=== PATIENT | male | born 1975 | race Caucasian/White ===

== ENCOUNTER 2020-01-17 11:00 | Inpatient (IN) | payer OTHER, SELFPAY ==
[2020-01-17] VITALS (14 sets, daily range): BP systolic 176–234; BP diastolic 82–151; PULSE 98–113; RESP 16–26; TEMP 36–36.7; O2SAT 95–100; BMI 27.4
--- NOTE | ~2020-01-17 | XR_ITS ---
XR chest 2V DATE: 01/18/2020 13:12 INDICATION: Hypertensive crisis. Pancreatitis. TECHNIQUE: PA and lateral views COMPARISON: None FINDINGS: Normal heart size. There are calcified right hilar nodes consistent with old granulomatous disease. No hilar or mediastinal enlargement. No pulmonary infiltrate or consolidation, pleural effusion or pulmonary vascular congestion or pneumo thorax. IMPRESSION: No active cardiopulmonary disease Reviewed, dictated and finalized at location A.
--- NOTE | ~2020-01-17 | CT_ITS ---
EXAMINATION: CT abdomen pelvis w con EXAM DATE: 01/17/2020 11:41 INDICATION: Abdominal pain. TECHNIQUE: Spiral CT of the abdomen and pelvis was performed following intravenous injection of 100 m L Omnipaque 350. Axial, coronal and sagittal images were reviewed. The dose-length product (DLP) fo r this examination was 471.12 mGy-cm. The exposure was tailored according to patient size (auto mA e xposure control), and iterative reconstruction (ASIR) was used as additional dose reduction technique . There is no prior study for comparison. FINDINGS: There is mild to moderate amount of inflammation surrounding the pancreatic tail with some dilated serpiginous regions suspected to be dilated pancreatic ducts or possibly small pseudocyst. No calcified pancreatic duct stone. The pancreatic duct is not visible in the head and body of the panc reas and there is no definite underlying mass, although that is not excludable. Most likely focal barbour creatitis. The liver, spleen, adrenal glands are unremarkable. Gallbladder is unremarkable. No biliary obstruc tion. Portal and splenic veins are patent. Kidneys enhance symmetrically. There is no hydronephros is. The prostate is unremarkable. The bladder is collapsed at time of imaging limiting evaluation. There is no retroperitoneal or pelvic lymphadenopathy. There is mild scattered arteriosclerotic d isease. The appendix is normal. The stomach and small bowel are unremarkable. There is moderate amount of c olonic stool. No free intraperitoneal gas. Borderline heart size. The lung bases are unremarkabl e. There are no osteoblastic or osteolytic lesions identified. IMPRESSION: Mild to moderate inflammation surrounding pancreatic tail with some small cystic regions. Most likely acute pancreatitis. Can't entirely exclude underlying pancreatic duct tail mass which sh ould be ruled out if findings persist on follow-up CT abdomen. Reviewed, dictated and finalized at location B. IMPRESSION: Mild to moderate inflammation surrounding pancreatic tail with some small cystic regions. Most likely acute pancreatitis. Can't entirely exclude u nderlying pancreatic duct tail mass which should be ruled out if findings persi st on follow-up CT abdomen.
--- NOTE | 2020-01-17 11:11 | ED.GENADULT ---
HPI - General Adult General Chief complaint: Abdominal Pain Stated complaint: ABD PAIN X1D Time Seen by Provider: 01/17/20 11:07 Source: patient Mode of arrival: ambulatory Limitations: no limitations Related Data Allergies Allergy/AdvReac Type Severity Reaction Status Date / Time No Known Allergies Allergy Unverified 02/15/14 15:29 Review of Systems Review of Systems: Narrative: CONSTITUTIONAL: Denies fever, chills, or sweats. EYES: Denies visual changes, redness, or discharge. ENT: Denies rhinorrhea, congestion, sore throat, or otalgia. CARDIOVASCULAR: Denies chest pain, palpitations, or edema. RESPIRATORY: Denies cough or dyspnea. GASTROINTESTINAL: Denies abdominal pain, nausea, vomiting, or diarrhea. GENITOURINARY: Denies dysuria or hematuria. SKIN: Denies rash or itching. MUSCULOSKELETAL: Denies back pain, joint pain, or myalgia. NEUROLOGIC: Denies headache, numbness, or weakness. PSYCHIATRIC: Denies anxiety or depression. [facility] Social History Social History Gender identity (if verbalized by the patient): Male Comments At the time of my signature I agree with nursing past medical history, surgical, social, and family history. There is no relevant family history pertinent to the presenting complaint. Exam Narrative: Exam Narrative: GENERAL: Well-appearing, well-nourished, and in no acute distress. HEAD: Normocephalic, atraumatic. EYES: PERRLA and EOMI. ENT: Nares clear, no rhinorrhea or epistaxis. Mucous membranes moist. NECK: Supple. No lymphadenopathy CHEST: Clear to auscultation. No respiratory distress. HEART: Regular rate and rhythm. No murmur heard. Normal peripheral pulses. ABDOMEN: Soft, nontender, nondistended, normal active bowel sounds. EXTREMITIES: Normal range of motion. No edema. SKIN: Warm, dry, no rash. NEURO: No focal deficits. Alert and oriented x3. Course Vital Signs Vital signs: Vital Signs Pulse Rate 113 H 01/17/20 11:03 Respiratory Rate 23 H 01/17/20 11:03 Blood Pressure 234/151 H 01/17/20 11:03 Pulse Oximetry 100 01/17/20 11:03 Pulse Rate 113 H 01/17/20 11:03 Respiratory Rate 23 H 01/17/20 11:03 Blood Pressure 234/151 H 01/17/20 11:03 Pulse Oximetry 100 01/17/20 11:03 Vital signs reviewed. The patient has been informed that they may have pre-hypertension or Hypertension based on a BP reading in the department. I recommend that the patient call the primary care provider listed on their discharge instructions or a physician of their choice this week to arrange follow up for further evaluation of possible pre-hypertension or Hypertension Medical Decision Making Differential Diagnosis Differential Diagnosis: Differential diagnosis: Appendicitis, gallbladder disease, pancreatitis, lower lobe pneumonia,AAA, AMI or ACS, DKA, diverticulitis. Uncomplicated lower UTI, uncomplicated UTI, polynephritis, penile trauma,balanoposthitis, phimosis, paraphimosis, testicular torsion, epididymitis, prostatitis, varicocele, spermatocele, hydrocele, hernia, kidney stone Vital Signs Vital Signs: Vital Signs Pulse Rate 113 H 01/17/20 11:03 Respiratory Rate 23 H 01/17/20 11:03 Blood Pressure 234/151 H 01/17/20 11:03 Pulse Oximetry 100 01/17/20 11:03 Pulse Rate 113 H 01/17/20 11:03 Respiratory Rate 23 H 01/17/20 11:03 Blood Pressure 234/151 H 01/17/20 11:03 Pulse Oximetry 100 01/17/20 11:03 Critical Care Time Critical Care Time Critical Care Time: No
--- NOTE | 2020-01-17 11:12 | ECG_ITS ---
Measurements Intervals [place] Rate: 109 P: 12 DC: 128 QRS: -13 QRSD: 85 T: 66 QT: 338 QTc: 456 Interpretive Statements SINUS TACHYCARDIA LEFT ATRIAL ENLARGEMENT LEFT VENTRICULAR HYPERTROPHY AND ST-T CHANGE PEAKED T WAVES- CONSIDER HYPERKALEMIA OR ISCHEMIA BASELINE WANDER- I, II ABNORMAL ECG Electronically Signed On 01-17-2020 14:41:16 CDT by Ibrahima Woods D.O.
--- NOTE | 2020-01-17 11:12 | ED.ABDPAIN ---
HPI - Abdominal Pain General Chief Complaint: Abdominal Pain Stated Complaint: ABD PAIN X1D Time Seen by Provider: 01/17/20 11:07 History of Present Illness HPI narrative: Patient presents as a transfer from the urgent care center for lower abdominal pain. It started 2 days ago at 2:30 in the morning. He has had no vomiting but nausea. He has had no stool for 3 days. He last ate yesterday. He gauges the pain at 5 out of 10. He says he has no medical problems. No prescription medications. He has a history of circumcision and wisdom tooth extraction. He smokes cigarettes drinks alcohol and does marijuana. 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 Related Data Home Medications Medication Instructions Recorded Confirmed No Home Medications 01/17/20 01/17/20 Allergies Allergy/AdvReac Type Severity Reaction Status Date / Time No Known Allergies Allergy Verified 01/17/20 12:05 Review of Systems Review of Systems: Narrative: CONSTITUTIONAL: Denies fever, chills, or sweats. EYES: Denies visual changes, redness, or discharge. ENT: Denies rhinorrhea, congestion, sore throat, or otalgia. CARDIOVASCULAR: Denies chest pain, palpitations, or edema. RESPIRATORY: Denies cough or dyspnea. GASTROINTESTINAL: He has abdominal pain, and nausea, but not vomiting, or diarrhea. GENITOURINARY: Denies dysuria or hematuria. SKIN: Denies rash or itching. MUSCULOSKELETAL: Denies back pain, joint pain, or myalgia. NEUROLOGIC: Denies headache, numbness, or weakness. PSYCHIATRIC: Denies anxiety or depression. [facility] Surgical History Surgical History (Updated 01/17/20 @ 11:14 by Cici Lai MD) History of circumcision History of wisdom tooth extraction Social History Social History (Updated 01/17/20 @ 11:14 by Cici Lai MD) Smoking status: Current every day smoker Alcohol intake: current Substance use: current Substance use type: marijuana Gender identity (if verbalized by the patient): Male Exam Narrative: Exam Narrative: GENERAL: Well-appearing, well-nourished, and in no acute distress. HEAD: Normocephalic, atraumatic. EYES: PERRLA and EOMI. ENT: Nares clear, no rhinorrhea or epistaxis. Mucous membranes moist. NECK: Supple. CHEST: Clear to auscultation. No respiratory distress. HEART: Regular rate and rhythm. No murmur heard. Normal peripheral pulses. ABDOMEN: Soft, nontender, nondistended, normal active bowel sounds. EXTREMITIES: Normal range of motion. No edema. SKIN: Warm, dry, no rash. NEURO: No focal deficits. Alert and oriented x3. PSYCH: Normal mood and affect. Course Consultations Consultation #1: Call Dr. Walker and he will consult. Date: 01/17/20 Time: 12:14 Consultation #2: Call Dr. Raphael, and he will admit for non-STEMI and pancreatitis and hypertensive crisis, to IMU. He agrees with admission and requests a urine drug screen. Date: 01/17/20 Time: 12:15 Vital Signs Vital signs: Vital Signs Pulse Rate 113 H 01/17/20 11:03 Respiratory Rate 23 H 01/17/20 11:03 Blood Pressure 234/151 H 01/17/20 11:03 Pulse Oximetry 100 01/17/20 11:03 Pulse Rate 110 H 01/17/20 12:35 Respiratory Rate 26 H 01/17/20 12:33 Blood Pressure 224/127 H 01/17/20 12:33 Pulse Oximetry 97 01/17/20 12:33 MDM - Abdominal Pain Medical Records Attestation: I reviewed the patient's medical records. Lab Data Attestation: I reviewed the patient's lab results. Result diagrams: 01/17/20 11:10 01/17/20 11:30 Labs: Lab Results 01/17/20 01/17/20 01/17/20 Range/Units 11:10 11:10 11:21 WBC 15.3 H (4.5-10.0) K/mm3 RBC 6.57 H (4.6-6.20) M/mm3 Hgb 19.6 H (14.0-18.0) g/dL Hct 56.6 H (42.0-52.0) % MCV 86.1 (80-100) fl MCH 29.8 (26-34) pg MCHC 34.6 (32-36) g/dl RDW 13.0 (11.5-14.5) % Plt Count 329 (150-375) k/mm3 MPV 10.1 (7.4-10.4) fl Immature Gran % (Auto) 0.8 H (0-0.5) % Neut % (Auto) 82.4 H (45.5-73.1) %
[2020-01-17 11:16] LABS: Basophils Absolute Auto 0.1 K/mm3 (0.0-0.1); Basophils Percent Auto 0.6 % (0.2-1.2); Eosinophils Absolute Auto 0.1 K/mm3 (0-0.3); Eosinophils Percent Auto 0.7 % (0-4.4); Hematocrit 56.6 % (42.0-52.0); Hemoglobin 19.6 g/dL (14.0-18.0); Immature Granulocyte Absolute 0.12 K/mm3 (0.00-0.031); Immature Granulocyte Percent A 0.8 % (0-0.5); Lymphocytes Absolute Auto 1.18 K/mm3 (0.9-3.2); Lymphocytes Percent Auto 7.7 % (18.3-44.2); Mean Corpuscular HGB Conc 34.6 g/dl (32-36); Mean Corpuscular Hemoglobin 29.8 pg (26-34); Mean Corpuscular Volume 86.1 fl (80-100); Mean Platelet Volume 10.1 fl (7.4-10.4); Monocytes Absolute Auto 1.2 K/mm3 (0.1-0.6); Monocytes Percent Auto 7.8 % (2.6-8.5); Neutrophils Absolute Auto 12.6 K/mm3 (1.3-6.7); Neutrophils Percent Auto 82.4 % (45.5-73.1); Platelet Count Result 329 k/mm3 (150-375); Red Blood Count 6.57 M/mm3 (4.6-6.20); White Blood Count 15.3 K/mm3 (4.5-10.0)
[2020-01-17] MEDS: FAMOTIDINE 20 MG/2 ML VIAL IV PUSH (11:22)
[2020-01-17] MEDS: MORPHINE SULFATE 4 MG/ML INJ IV PUSH (11:22)
[2020-01-17] MEDS: SODIUM CHLORIDE 0.9% IV 1,000 ML 999 ML IV CONT ×2 (11:23→11:50)
--- NOTE | 2020-01-17 11:24 | PC.NURSE ---
Pt to CT scan via stretcher.
[2020-01-17 11:31] LABS: Alanine Aminotransferase 22 U/L (4-50); Albumin Level 4.7 g/dL (3.5-5.1); Alkaline Phosphatase 88 U/L (38-126); Aspartate Amino Transferase 25 U/L (17-59); Bilirubin,Total 0.6 mg/dL (0.2-1.3); Blood Urea Nitrogen 20 mg/dL (9-20); Calcium 10.3 mg/dL (8.4-10.2); Carbon Dioxide 27 mmol/L (22-30); Chloride 99 mmol/L (98-107); Estimated CRCL calculation 57 ml/min; Estimated Glomerular Filt Rate 55; Glucose 113 mg/dL (75-110); Potassium 4.3 mmol/L (3.4-5.0); Sodium 135 mmol/L (137-145)
[2020-01-17 11:31] LABS: Estimated CRCL calculation 57 ml/min; Estimated Glomerular Filt Rate 55
[2020-01-17 11:34] LABS: Add Urine Microscopic? YES; Bacteria Urine Trace /hpf; Bilirubin Urine Negative (Negative); Blood Urine 3+ (Negative); Glucose Urine UA Negative (Negative); Ketones Urine Trace mg/dL (Negative); Leukocyte Esterase Ur Negative LEU/UL (Negative); Mucus Urine Few /lpf; Nitrate Urine Negative (Negative); Protein Urine 3+ mg/dL (Negative); RBC Urine >75 /hpf (0-2); Squamous Epithelial Cell Urine Occasional /hpf (Few); Urobilinogen Urine Negative mg/dL (<2.0)
[2020-01-17 11:36] LABS: Appearance Urine Cloudy (Clear); Color Urine Dark Yellow (Yellow); Specific Grav Ur 1.033 (1.001-1.035)
[2020-01-17 11:36] LABS: Lipase 2114 U/L (23-300)
[2020-01-17 11:42] LABS: Troponin I 0.072 ng/mL (0.000-0.034)
[2020-01-17] MEDS: ASPIRIN 81 MG CHEWABLE TABLET 324 MG PO (12:34)
[2020-01-17] MEDS: HYDROMORPHONE HCL 1 MG/ML INJ IV PUSH (12:35)
[2020-01-17] MEDS: METOPROLOL TARTRATE INJ 5 MG/5 ML VIAL IV PUSH (12:35)
[2020-01-17] MEDS: LABETALOL HCL INJ 100 MG/20 ML VIAL 20 MG IV PUSH (13:52)
--- NOTE | 2020-01-17 14:11 | PC.NURSE ---
This patient, Waqar Lambert, was admitted to IMU Room 214-01. Patient/family oriented to hospital policies and general routines including ID bracelet, bed and alarms, visiting hours, pain management, procedures, bathroom and other care routines, personal items, smoking policy, room service/diet, and visiting hours. Valuables list has been completed. Information on how to activate the Rapid Response Team has been discussed. Patient/Family are encouraged to report perceived risks to care and to ask questions if they do not understand what they are told or what they should do.
[2020-01-17] MEDS: SODIUM CHLORIDE 0.9% IV 1,000 ML 125 ML IV CONT ×2 (14:20→21:43)
[2020-01-17 14:50] LABS: Troponin I 0.092 ng/mL (0.000-0.034)
--- NOTE | 2020-01-17 15:58 | PM.IMHP ---
H&P: HPI History of Present Illness Chief complaint: non stemi and hypertensive crisis and pancreatitis Narrative: Waqar Lambert is a 44 year old male the patient stated that he has not been eating very well for last couple days and he has had some abdominal pain. The patient went to the urgent care this lower abdominal pain and was sent to the emergency room here. The patient stated that he vomited on Friday and was just very nauseated. He has not had a stool for 3 days. He stated he felt very bloated and constipated. He has never had a previous history of pancreatitis. He did eat a little bit yesterday. His pain was severe 5/10. Patient has 3-4 tall alcoholic drinks every day. Patient's white count was elevated today. H&H is elevated. The patient's dehydrated. 135 which was slightly low. Troponin 0.072 and 0.092. Lipase 2114. Patient was getting ice chips initially and was tolerating very well so we increase it to clear liquid. Scan of the abdomen mild to moderate inflammation surrounding pancreatic tail with some small cystic regions. Most likely acute pancreatitis. She can't entirely exclude underlying pancreatic duct tail mass which she be ruled out if findings persist on a follow-up CT abdomen. IV Pepcid, morphine IV fluids aspirin Dilaudid Lopressor for his elevated blood pressure labetalol for elevated blood pressure. Patient does not have any hallucinations or any tremors. Drug screen is pending. Date of service 01/17/2020 Review of Systems Review of Systems: All systems reviewed & are unremarkable except as noted in HPI and below Constitutional: Constitutional: Reports as per HPI and Reports no additional constitutional complaints Eyes: Eyes: Reports as per HPI and Reports no additional eye complaints ENT: Reports system reviewed and no additional complaints, except as documented and Reports Normal hearing present Cardiovascular: Cardiovascular: Reports no additional cardiovascular complaints Respiratory: Respiratory: Reports no additional respiratory complaints and Reports no additional respiratory complaints Gastrointestinal: Gastrointestinal: Reports as per HPI and Reports no additional gastrointestinal complaints Musculoskeletal: Musculoskeletal: Reports no additional musculoskeletal complaints Integumentary/Breasts: Skin/Breast: Reports system reviewed and no additional complaints, except as docu and Reports as per HPI Neurologic: Reports system reviewed and no additional complaints, except as documented, Reports as per HPI and Reports Normal hearing present Psychiatric: Psychiatric: Reports no additional psychiatric complaints and Reports as per HPI Endocrine: Endocrine: Reports no additional endocrine complaints Hematologic/Lymphatic: Hematologic/Lymphatic: Reports no additional hematologic/lymphatic complaints Allergic/Immunologic: Allergic/Immunologic: Reports no additional allergic/immunologic complaints PMFSH Surgical History Surgical History (Updated 01/17/20 @ 11:14 by Cici Lai MD) History of circumcision History of wisdom tooth extraction Family History Family History (Updated 01/17/20 @ 16:10 by Geri Acuña NP) Unknown No family history of disorders Social History Social History (Updated 01/17/20 @ 16:12 by Geri Acuña NP) Social History: Patient stated that he drinks 3-4 tall drinks of alcohol that is mixed with 1-1 and half shots of liquor and soda. He lives with his significant other. He is engaged. He does not have a power corporate associate attorney. He desires to be a full code. 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 The patient has 2 sons. He smokes marijuana he still smokes cigarettes every day. Smoking packs per day: 1 Smoking cigarettes per day: 20.0 Smoking status: Current every day smoker Tobacco type: cigarettes Alcohol intake: current Substance use: current Substance use type: marijuana Gender identity (if verbalized by the patient): Male Spiritual
[2020-01-17 17:01] LABS: Amphetamine Screen Urine Negative (Negative); Barbiturate Screen Urine Negative (Negative); Benzodiazepines Screen Urine Negative (Negative); Cannabinoid Screen Urine Positive (Negative); Cocaine Screen Urine Negative (Negative); Methadone Screen Urine Negative (Negative); Opiate Screen Urine Positive (Negative); Phencyclidine Screen Urine Negative (Negative)
[2020-01-17] MEDS: hydrALAZINE HCL 20 MG/ML VIAL 10 MG IV PUSH ×2 (17:10→20:44)
--- NOTE | 2020-01-17 17:28 | PM.CNCAR ---
Assessment and Plan Assessment and plan (1) Elevated troponin: Code(s): R79.89 - Other specified abnormal findings of blood chemistry Status: Acute Assessment and Plan: With possible Micardis straining, will follow-up troponin, get echocardiogram to evaluate current left ventricular systolic function. He does have significant risk factors of coronary disease, once is otherwise stable consider further evaluation possibly with cardiac catheterization (2) Tobacco use: Code(s): Z72.0 - Tobacco use Status: Chronic (3) Marijuana use: Code(s): F12.90 - Cannabis use, unspecified, uncomplicated Status: Chronic (4) Alcoholism: Code(s): F10.20 - Alcohol dependence, uncomplicated Status: Chronic (5) Hypertensive crisis: Code(s): I16.9 - Hypertensive crisis, unspecified Status: Acute Assessment and Plan: Likely is worsened by alcohol, will get echocardiogram, will add Toprol and Norvasc, consider adding losartan if blood pressure still significantly elevated (6) Pancreatitis: Qualifiers: Acute pancreatitis complication: unspecified Chronicity: acute Pancreatitis type: unspecified pancreatitis type Qualified Code(s): K85.90 - Acute pancreatitis without necrosis or infection, unspecified Code(s): K85.90 - Acute pancreatitis without necrosis or infection, unspecified Status: Acute (7) Non-ST elevated myocardial infarction (non-STEMI): Code(s): I21.4 - Non-ST elevation (NSTEMI) myocardial infarction Status: Acute Additional Plan Thank you for allowing me to participate in this patient's care, I will be following up with you. Please do not hesitate to call me for any other inquiry History of Present Illness History of Present Illness Consult date/time: 01/17/20 17:28 44 years old gentleman, with history of hypertension, history of obesity, history of smoking came to the hospital because of worsening shortness of breath for the past few days. He also had nausea and back pain. Noted to have pancreatitis, noted with the blood work to have elevated troponin with suspected non ST elevation myocardial infarction. No history of chest pain he does have mild shortness of breath with mild exertion mild orthopnea no recent changes. He has mild leg swelling. No known history of coronary artery disease according to him no history of known arrhythmia. He was noted to have significant hypertension but he does not take any hypertensive medications. He admits smoking 1 pack per day and drinking alcohol on many occasions Reason For Visit: non stemi and hypertensive crisis and pancreatitis Review of Systems Constitutional: Constitutional: Reports fatigue Cardiovascular: Cardiovascular: Reports as per HPI, Reports pedal edema and Reports leg edema Respiratory: Respiratory: Reports dyspnea Gastrointestinal: Gastrointestinal: Reports nausea and Reports vomiting PMFSH Surgical History Surgical History History of circumcision History of wisdom tooth extraction Family History Family History Unknown No family history of disorders Social History Social History Social History: Patient stated that he drinks 3-4 tall drinks of alcohol that is mixed with 1-1 and half shots of liquor and soda. He lives with his significant other. He is engaged. He does not have a power mergers and acquisitions attorney. He desires to be a full code. 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 He smokes marijuana he still smokes cigarettes every day. Smoking packs per day: 1 Smoking cigarettes per day: 20.0 Smoking status: Current every day smoker Tobacco type: cigarettes Alcohol intake: current Substance use: current Substance use type: marijuana Gender identity (if verbalized by the patient): Keagan
[2020-01-17 17:52] LABS: Troponin I 0.091 ng/mL (0.000-0.034)
[2020-01-17] MEDS: HYDROMORPHONE HCL 1 MG/ML INJ 0.5 MG IV PUSH (18:06)
[2020-01-17] MEDS: FOLIC ACID 1 MG TABLET PO (18:06)
[2020-01-17] MEDS: THIAMINE HCL 100 MG TABLET PO (18:06)
[2020-01-17] MEDS: CHLORDIAZEPOXIDE 25 MG CAPSULE PO (20:45)
[2020-01-17] MEDS: LABETALOL HCL INJ 100 MG/20 ML VIAL IV PUSH (21:43)
[2020-01-18] VITALS (18 sets, daily range): BP systolic 173–213; BP diastolic 82–113; PULSE 87–111; RESP 18–22; TEMP 35.7–36.7; O2SAT 97–100
--- NOTE | 2020-01-18 | ECHO_ITS ---
Patient Info Name: Waqar Lambert Age: 44 years : 1975 Gender: Male Ht: 68 in Wt: 181 lbs BSA: 2.00 m2 HR: 100 bpm BP: 210 / 113 mmHg Heart Rhythm: Tachycardia Technical Quality: Good Exam Date: 01/18/2020 10:26 AM Exam Location: [facility] Patient Status: Inpatient Admit Date: 01/17/2020 Staff Ordering Physician: Steve Walker MD Manager Sports: Lázaro Andrews RDCS Attending Provider: Agus Raphael MD Exam Type: CA echo doppler color flow Study Info Indications I50.9 - Heart failure, unspecified Complete two-dimensional, color flow and Doppler transthoracic echocardiogram is performed. Strain analysis performed. History/Risk Factors Hypertensive crisis; NSTEMI; EtOH, SOB, orthopnea. Summary 1. There is moderate concentric increased left ventricular wall thickness. 2. Left ventricular systolic function is mildly to moderately reduced, estimated at 35-40%. 3. Right ventricular systolic function is normal. 4. Left atrial chamber dimension is mildly enlarged. 5. There is no aortic valve stenosis. 6. There is mild to moderate mitral valve regurgitation. 7. Mild pulmonary hypertension, estimated pulmonary arterial systolic pressure is 43 mmHg. Left Ventricle Left ventricular chamber dimension is normal. Left ventricular systolic function is mildly to moderately reduced, estimated at 35-40%. There is moderate concentric increased left ventricular wall thickness. Left ventricular septal wall motion is normal. The left ventricular diastolic function is normal. Right Ventricle Right ventricular chamber dimension is normal. Right ventricular systolic function is normal. Left Atria Left atrial chamber dimension is mildly enlarged. Right Atria Right atrial chamber dimension is normal. Aortic Valve The aortic valve is trileaflet. There is no aortic valve sclerosis. There is no aortic valve stenosis. There is no aortic valve regurgitation. Pulmonic Valve The pulmonic valve is normal. There is no pulmonic valve stenosis. There is no pulmonic regurgitation. Mitral Valve The mitral valve has normal leaflets. There is no mitral valve stenosis. There is mild to moderate mitral valve regurgitation. Tricuspid Valve The tricuspid valve leaflets are normal. There is no significant tricuspid valve stenosis. There is trace tricuspid valve regurgitation. Mild pulmonary hypertension, estimated pulmonary arterial systolic pressure is 43 mmHg. Pericardium/Pleural The pericardium appears normal. There is no pericardial effusion. Inferior Vena Cava Normal inferior vena cava with >50% collapse upon inspiration. Aorta The aortic root size at the sinus of Valsalva is normal. The prox ascending aorta size is normal. Left Ventricular Outflow Tract Name Value Normal LVOT 2D LVOT Diameter 2.1 cm LVOT Doppler LVOT Peak Gradient 5 mmHg LVOT Mean Gradient 2 mmHg LVOT VTI 15 cm LVOT VTI/AV VTI Ratio 0.6 LVOT Stroke Volume
[2020-01-18 05:06] LABS: Basophils Absolute Auto 0.1 K/mm3 (0.0-0.1); Basophils Percent Auto 0.7 % (0.2-1.2); Eosinophils Absolute Auto 0.3 K/mm3 (0-0.3); Eosinophils Percent Auto 2.6 % (0-4.4); Hemoglobin 17.1 g/dL (14.0-18.0); Immature Granulocyte Absolute 0.08 K/mm3 (0.00-0.031); Immature Granulocyte Percent A 0.7 % (0-0.5); Lymphocytes Absolute Auto 1.51 K/mm3 (0.9-3.2); Lymphocytes Percent Auto 13.9 % (18.3-44.2); Mean Corpuscular HGB Conc 34.2 g/dl (32-36); Mean Corpuscular Hemoglobin 29.6 pg (26-34); Mean Corpuscular Volume 86.7 fl (80-100); Mean Platelet Volume 10.1 fl (7.4-10.4); Monocytes Absolute Auto 1.3 K/mm3 (0.1-0.6); Neutrophils Absolute Auto 7.6 K/mm3 (1.3-6.7); Neutrophils Percent Auto 70.1 % (45.5-73.1); Platelet Count Result 262 k/mm3 (150-375); Red Blood Count 5.77 M/mm3 (4.6-6.20); Red Cell Distribution Width 13.1 % (11.5-14.5); White Blood Count 10.8 K/mm3 (4.5-10.0)
[2020-01-18] MEDS: SODIUM CHLORIDE 0.9% IV 1,000 ML 125 ML IV CONT (05:13)
[2020-01-18] MEDS: hydrALAZINE HCL 20 MG/ML VIAL 10 MG IV PUSH ×2 (05:13→22:12)
[2020-01-18 05:24] LABS: Alanine Aminotransferase 15 U/L (4-50); Albumin Level 3.8 g/dL (3.5-5.1); Alkaline Phosphatase 68 U/L (38-126); Aspartate Amino Transferase 20 U/L (17-59); Bilirubin,Total 0.5 mg/dL (0.2-1.3); Blood Urea Nitrogen 16 mg/dL (9-20); Carbon Dioxide 22 mmol/L (22-30); Chloride 104 mmol/L (98-107); Cholesterol 208 mg/dL (0-200); Estimated CRCL calculation 74 ml/min; Estimated Glomerular Filt Rate > 60; Glucose 92 mg/dL (75-110); HDL Direct 37 mg/dL; Lipase 591 U/L (23-300); Magnesium 2.2 mg/dL (1.6-2.3); Potassium 4.1 mmol/L (3.4-5.0); Sodium 135 mmol/L (137-145); Triglycerides 111 mg/dL (<150)
[2020-01-18 05:31] LABS: LDL Cholesterol Direct 121 mg/dL
[2020-01-18 05:34] LABS: CRP 16.2 mg/dL (<1.0)
[2020-01-18] MEDS: METOPROLOL SUCCINATE EXT REL 25 MG TABCR PO ×2 (08:48→11:02)
[2020-01-18] MEDS: FOLIC ACID 1 MG TABLET PO (08:49)
[2020-01-18] MEDS: AMLODIPINE BESYLATE 5 MG TABLET PO ×2 (08:49→11:02)
[2020-01-18] MEDS: THIAMINE HCL 100 MG TABLET PO (08:49)
--- NOTE | 2020-01-18 09:39 | PM.PNCARD ---
Progress Note: A&P Assessment and Plan (1) Elevated troponin: Code(s): R79.89 - Other specified abnormal findings of blood chemistry Status: Acute Assessment and Plan: He has very mild trop elevation that peaked at 0.09 In the setting of acute pancreatitis, alcohol withdrawal and HTN urgency Will follow 2D echocardiogram, and eventually he will need ischemic evaluation when stable given multipe cardiovascular risk factors (2) Hypertensive crisis: Code(s): I16.9 - Hypertensive crisis, unspecified Status: Acute Assessment and Plan: He was not on antihypertensives at baseline however he had not seen doctors in long time Will increase Norvasc dose to 10 mg Start Losartan 50 daily. Continue Metoprolol (3) Tobacco use: Code(s): Z72.0 - Tobacco use Status: Chronic (4) Marijuana use: Code(s): F12.90 - Cannabis use, unspecified, uncomplicated Status: Chronic (5) Alcoholism: Code(s): F10.20 - Alcohol dependence, uncomplicated Status: Chronic (6) Pancreatitis: Qualifiers: Acute pancreatitis complication: unspecified Chronicity: acute Pancreatitis type: unspecified pancreatitis type Qualified Code(s): K85.90 - Acute pancreatitis without necrosis or infection, unspecified Code(s): K85.90 - Acute pancreatitis without necrosis or infection, unspecified Status: Acute (7) Non-ST elevated myocardial infarction (non-STEMI): Code(s): I21.4 - Non-ST elevation (NSTEMI) myocardial infarction Status: Acute Assessment and Plan: Likely type II IN due to increase demand from underlying SIRS/pancreatitis and HTN emergeny as well as alcohol withdrawal. Will plan C when stable Additional Plan Thank you for allowing me to participate in this patient's care, I will be following up with you. Please do not hesitate to call me for any other inquiry Subjective Date/time seen: 01/18/20 09:39 He feels better today. Able to tolerate clear liquids. His BP remains remarkably elevated. He received PRN doses of Hydralazine and metoprolol overnight Review of Systems Constitutional: Constitutional: Reports fatigue Cardiovascular: Cardiovascular: Reports as per HPI, Reports pedal edema, Reports leg edema and Reports dyspnea Respiratory: Respiratory: Reports dyspnea Gastrointestinal: Gastrointestinal: Reports nausea and Reports vomiting Endocrine: Endocrine: Reports fatigue Exam Narrative: Exam Narrative: Awake alert oriented x3 not in acute distress Neck is supple no obvious JVD, no carotid bruit Chest: Good air entry bilaterally, lungs are clear to auscultation and percussion bilaterally Cardiovascular: Regular rate and rhythm, 2/6 systolic murmur noted left sternal border Abdomen: Soft nontender bowel sounds positive Extremities: No edema has good pulses distally bilaterally Objective Data Vital Signs Vital Signs: Vital Signs - 24 hr 01/17/20 11:03 01/17/20 12:33 01/17/20 12:35 Temperature Pulse Rate 113 H 104 H 110 H Respiratory Rate 23 H 26 H Blood Pressure 234/151 H 224/127 H Pulse Oximetry 100 97 01/17/20 13:52 01/17/20 14:12 01/17/20 14:24 Temperature 36.2 C L Pulse Rate 98 98 98 Respiratory Rate 23 H 16 Blood Pressure 178/113 H 183/126 H Pulse Oximetry 96 97 01/17/20 16:00 01/17/20 18:00 01/17/20 19:39 Temperature 36.0 C L 36.7 C Pulse Rate 107 H 104 H 103 H Respiratory Rate 16 18 Blood Pressure 213/135 H 210/117 H Pulse Oximetry 98 95 01/17/20 20:00 01/17/20 21:25 01/17/20 21:43 Temperature Pulse Rate 103 H 108 H Respiratory Rate Blood Pressure 210/117 H 220/125 H Pulse Oximetry 01/17/20 22:00 01/17/20 23:20 01/18/20 00:00 Temperature 36.7 C Pulse Rate 105 H 109 H 106 H Respiratory Rate 20 Blood Pressure 176/82 H 176/82 H Pulse Oximetry 97 01/18/20 04:00 01/18/20 05:00 01/18/20 06:00 Temperature 36.7 C Pulse Rate 105 H 111 H 100
[2020-01-18] MEDS: LOSARTAN POTASSIUM 50 MG TABLET PO (11:01)
[2020-01-18] MEDS: CHLORDIAZEPOXIDE 25 MG CAPSULE PO ×3 (11:02→22:12)
[2020-01-18] MEDS: LIDOCAINE 5% PATCH 2 PATCH TRANSDERM (15:49)
[2020-01-18] MEDS: FUROSEMIDE INJ 40 MG/4 ML VIAL 20 MG IV PUSH (16:54)
--- NOTE | 2020-01-18 17:17 | PM.IMPN ---
Progress Note: A&P Assessment and Plan (1) Pancreatitis: Qualifiers: Acute pancreatitis complication: unspecified Chronicity: acute Pancreatitis type: unspecified pancreatitis type Qualified Code(s): K85.90 - Acute pancreatitis without necrosis or infection, unspecified Code(s): K85.90 - Acute pancreatitis without necrosis or infection, unspecified Status: Acute Assessment and Plan: Most likely due to the alcoholism. I did place the patient on a CIWA scale. With p.r.n. Librium, folic acid and thiamin. Repeat lipase in the a.m.. Repeat CT if needed in the next month. The CT was more suggestive of acute pancreatitis versus a pancreatic tail mass. Lipase was elevated as well. Patient was instructed to abstain from alcohol. Check lipid profile in the a.m. as well. I did increase him to a clear liquid diet as he is not currently having any discomfort. Continue with IV fluids. Patient is dehydrated. Blood cancer elevated most likely due to dehydration. Continue with IV fluids and Zofran. Patient has allotted for discomfort. 01/18/20 17:17 patient is a 44-year-old male history of alcohol abuse smoking and smoking marijuana, with no significant cardiac history presented emergency department with a complaint of abdominal pain chest pain is found to have a non STEMI with mildly elevated tropes, CT scan of abdomen showed acute pancreatitis, there is also concern patient may have malignancy and will need a repeat Ct scan of abdomen once clinically stable, patient is seen by historical records administrator patient had a cardiac echo showed moderately reduced ejection fraction and 35-40%, historical records administrator recommending cardiac catheterization once patient is clinically stable and acute pancreatitis has resolved, patient's last drink was on Friday 3 days prior to coming to emergency depart, patient also significant elevated blood pressure and tachycardia may possibly be in DT historical records administrator adjusted patient blood pressure medication, we have placed the patient on CIWA protocol with Librium. (2) Elevated troponin: Code(s): R79.89 - Other specified abnormal findings of blood chemistry Status: Acute Assessment and Plan: They appear to be level. Please continue to monitor. (3) Alcoholism: Code(s): F10.20 - Alcohol dependence, uncomplicated Status: Chronic Assessment and Plan: Patient was advised to abstain from drinking. CIWA score p.r.n. Librium and routine folic acid thiamin. (4) Marijuana use: Code(s): F12.90 - Cannabis use, unspecified, uncomplicated Status: Chronic Assessment and Plan: Explained to the patient that this is a no smoking hospital. (5) Tobacco use: Code(s): Z72.0 - Tobacco use Status: Chronic Assessment and Plan: I did offer nicotine patch but patient denies need for nicotine patch at this time. (6) Polycythemia: Code(s): D75.1 - Secondary polycythemia Status: Acute Assessment and Plan: Possibly due to dehydration or possible sleep apnea or possible pulmonary hypertension. Subjective Date/time seen: 01/18/20 17:17 patient is a 44-year-old male history of alcohol abuse smoking and smoking marijuana, with no significant cardiac history presented emergency department with a complaint of abdominal pain chest pain is found to have a non STEMI with mildly elevated tropes, CT scan of abdomen showed acute pancreatitis, there is also concern patient may have malignancy and will need a repeat Ct scan of abdomen once clinically stable, patient is seen by historical records administrator patient had a cardiac echo showed moderately reduced ejection fraction and 35-40%, historical records administrator recommending cardiac catheterization once patient is clinically stable and acute pancreatitis has resolved, patient's last drink was on Friday 3 days prior to coming to emergency depart, patient also significant elevated blood pressure and tachycardia may possibly be in DT historical records administrator
[2020-01-19] VITALS (19 sets, daily range): BP systolic 117–163; BP diastolic 77–108; PULSE 79–103; RESP 17–24; TEMP 36.7–36.9; O2SAT 94–100
[2020-01-19] MEDS: hydrALAZINE HCL 20 MG/ML VIAL 10 MG IV PUSH ×2 (02:49→19:08)
[2020-01-19 05:21] LABS: Hematocrit 50.2 % (42.0-52.0); Hemoglobin 16.8 g/dL (14.0-18.0); Mean Corpuscular HGB Conc 33.5 g/dl (32-36); Mean Corpuscular Volume 86.6 fl (80-100); Mean Platelet Volume 9.8 fl (7.4-10.4); Platelet Count Result 288 k/mm3 (150-375); Red Cell Distribution Width 12.9 % (11.5-14.5)
[2020-01-19 05:30] LABS: Alanine Aminotransferase 18 U/L (4-50); Alkaline Phosphatase 62 U/L (38-126); Aspartate Amino Transferase 22 U/L (17-59); Bilirubin,Total 0.5 mg/dL (0.2-1.3); Blood Urea Nitrogen 18 mg/dL (9-20); Calcium 9.4 mg/dL (8.4-10.2); Carbon Dioxide 27 mmol/L (22-30); Chloride 101 mmol/L (98-107); Estimated CRCL calculation 63 ml/min; Estimated Glomerular Filt Rate 60; Glucose 108 mg/dL (75-110); Lipase 391 U/L (23-300); Potassium 3.7 mmol/L (3.4-5.0); Sodium 134 mmol/L (137-145)
[2020-01-19] MEDS: CHLORDIAZEPOXIDE 25 MG CAPSULE PO ×3 (06:21→20:25)
[2020-01-19] MEDS: FOLIC ACID 1 MG TABLET PO (08:25)
[2020-01-19] MEDS: THIAMINE HCL 100 MG TABLET PO (08:25)
[2020-01-19] MEDS: AMLODIPINE BESYLATE 5 MG TABLET 10 MG PO (08:26)
[2020-01-19] MEDS: LOSARTAN POTASSIUM 50 MG TABLET PO (08:27)
[2020-01-19] MEDS: METOPROLOL SUCCINATE EXT REL 50 MG TABCR PO (08:27)
--- NOTE | 2020-01-19 09:53 | PM.PNCARD ---
Progress Note: A&P Assessment and Plan (1) Elevated troponin: Code(s): R79.89 - Other specified abnormal findings of blood chemistry Status: Acute Assessment and Plan: He has very mild trop elevation that peaked at 0.09 In the setting of acute pancreatitis, alcohol withdrawal and HTN urgency Likely type II MD from increase demand however echo showed EF of 35-40%. LHC will be indicated to rule out ischemic cardiomyopathy He is clinically better from pancreatitis stand point. His BP is better controlled. Will plan [facility] later this afternoon. okay to have clear liquid diet this am. (2) Cardiomyopathy: Code(s): I42.9 - Cardiomyopathy, unspecified Status: Acute Assessment and Plan: Appears euvolemic. Creatinine 1.3 from 1.1. Would hold Lasix (started yesterday). Continue Metoprolol and Losartan for BP control and for LV dysfunction C later today to look for etiology of cardiomyoopathy (3) Hypertensive crisis: Code(s): I16.9 - Hypertensive crisis, unspecified Status: Acute Assessment and Plan: He was not on antihypertensives at baseline however he had not seen doctors in long time BP on admission in 200 range systolic. Better now. Continue Norvasc, Losartan and Metoprolol. (4) Tobacco use: Code(s): Z72.0 - Tobacco use Status: Chronic Assessment and Plan: Smoking cessation counsleing (5) Marijuana use: Code(s): F12.90 - Cannabis use, unspecified, uncomplicated Status: Chronic (6) Pancreatitis: Qualifiers: Acute pancreatitis complication: unspecified Chronicity: acute Pancreatitis type: unspecified pancreatitis type Qualified Code(s): K85.90 - Acute pancreatitis without necrosis or infection, unspecified Code(s): K85.90 - Acute pancreatitis without necrosis or infection, unspecified Status: Acute (7) Non-ST elevated myocardial infarction (non-STEMI): Code(s): I21.4 - Non-ST elevation (NSTEMI) myocardial infarction Status: Acute Assessment and Plan: Likely type II MD due to increase demand from underlying SIRS/pancreatitis and HTN emergeny as well as alcohol withdrawal. Will plan C this afternoon. Additional Plan Thank you for allowing me to participate in this patient's care, I will be following up with you. Please do not hesitate to call me for any other inquiry Subjective Date/time seen: 01/19/20 09:53 He feels much better. Abd pain resolved. He denies chest pain or dyspnea. Review of Systems Review of Systems: All systems reviewed & are unremarkable except as noted in HPI and below Constitutional: Constitutional: Reports fatigue Eyes: Eyes: Denies blurry vision ENT: Reports Normal hearing present and Denies headache(s) Cardiovascular: Cardiovascular: Reports as per HPI, Reports pedal edema, Reports leg edema and Reports dyspnea Respiratory: Respiratory: Reports dyspnea Gastrointestinal: Gastrointestinal: Reports nausea and Reports vomiting Musculoskeletal: Musculoskeletal: Denies back pain Neurologic: Reports Normal hearing present and Denies headache(s) Psychiatric: Psychiatric: Denies anxiety Endocrine: Endocrine: Reports fatigue Exam Narrative: Exam Narrative: Awake alert oriented x3 not in acute distress Neck is supple no obvious JVD, no carotid bruit Chest: Good air entry bilaterally, lungs are clear to auscultation and percussion bilaterally Cardiovascular: Regular rate and rhythm, 2/6 systolic murmur noted left sternal border Abdomen: Soft nontender bowel sounds positive Extremities: No edema has good pulses distally bilaterally Const: General: no acute distress Eyes: Sclera: sclerae normal Neck: Neck: no JVD Carotids: no bruits Resp: Effort & Inspection: normal respiratory effort Auscultation: clear to auscultation bilaterally Cardio: Rate: regular rate and not tachycardic Rhythm: regular rhythm Heart sounds: no gallops, no murmurs
--- NOTE | 2020-01-19 15:33 | PM.IMPN ---
Progress Note: A&P Assessment and Plan (1) Pancreatitis: Qualifiers: Acute pancreatitis complication: unspecified Chronicity: acute Pancreatitis type: unspecified pancreatitis type Qualified Code(s): K85.90 - Acute pancreatitis without necrosis or infection, unspecified Code(s): K85.90 - Acute pancreatitis without necrosis or infection, unspecified Status: Acute Assessment and Plan: Most likely due to the alcoholism. advance diet after heart cath. With p.r.n. Librium, folic acid and thiamin. (2) Elevated troponin: Code(s): R79.89 - Other specified abnormal findings of blood chemistry Status: Acute Assessment and Plan: Pt going for heart cath (3) Alcoholism: Code(s): F10.20 - Alcohol dependence, uncomplicated Status: Chronic Assessment and Plan: Patient was advised to abstain from drinking. CIWA score p.r.n. Librium and routine folic acid thiamin. (4) Marijuana use: Code(s): F12.90 - Cannabis use, unspecified, uncomplicated Status: Chronic (5) Tobacco use: Code(s): Z72.0 - Tobacco use Status: Chronic Assessment and Plan: does not want nicotine patch (6) Polycythemia: Code(s): D75.1 - Secondary polycythemia Status: Acute Assessment and Plan: possibly secondary to sleep apnea or possible pulmonary hypertension. Subjective Date/time seen: 01/19/20 15:33 Interval history: 44-year-old male history of alcohol abuse smoking and smoking marijuana, with no significant cardiac history presented emergency department with a complaint of abdominal pain chest pain is found to have a non STEMI with mildly elevated tropes, CT scan of abdomen showed acute pancreatitis, there is also concern patient may have malignancy and will need a repeat Ct scan of abdomen once clinically stable, patient is seen by cotton wringer patient had a cardiac echo showed moderately reduced ejection fraction and 35-40%, cotton wringer recommending cardiac catheterization. per previous note, pt is going for heart cath today. Review of Systems Review of Systems: All systems reviewed & are unremarkable except as noted in HPI and below Exam Const: General: cooperative, healthy appearing, comfortable, no acute distress, well developed, alert, awake and Physically active Nutritional Appearance: average body habitus and well nourished Orientation/consciousness: oriented to person, oriented to place, oriented to time and patient oriented x3 Limitations: no limitations Resp: Effort & Inspection: normal respiratory effort Auscultation: clear to auscultation bilaterally Percussion: percussion normal Cardio: Palpation: normal PMI Rate: regular rate and tachycardic Rhythm: regular rhythm Heart sounds: S1 normal heart sound present and S2 normal heart sound present Peripheral pulses: Peripheral pulses 2+ throughout GI: Inspection: normal to inspection Auscultation: normal bowel sounds Neuro: General: oriented to person, oriented to place, oriented to time and patient oriented x3 Cranial nerves: Yes Equal, round and reactive pupils present and Yes Normal hearing present Cognition (Neuro): normal cognition Speech: normal speech Gait exam (Neuro): Normal gait present Motor exam (neuro): 5/5 motor strength present throughout Sensory Exam: normal sensation Objective Data Vital Signs Vital Signs: Vital Signs - 24 hr 01/18/20 16:00 01/18/20 16:33 01/18/20 18:00 Temperature 35.7 C L Pulse Rate 90 100 108 H Respiratory Rate 20 20 Blood Pressure 174/107 H 174/107 H Pulse Oximetry 100 100 01/18/20 19:50 01/18/20 20:00 01/18/20 22:00 Temperature 36.7 C Pulse Rate 87 89 92 Respiratory Rate 18 Blood Pressure 173/100 H 173/100 H Pulse Oximetry 97 97 01/19/20 00:00 01/19/20 02:00 01/19/20 04:00 Temperature 36.7 C 36.7 C Pulse Rate 95 79 91 Respiratory Rate 20 18 Blood Pressure 158/101 H 139/82 Pulse Oximetry 99 98
--- NOTE | 2020-01-19 16:15 | WPDMODSED ---
Moderate Sedation Note-Pt Data Patient Data Allergies Allergy/AdvReac Type Severity Reaction Status Date / Time No Known Allergies Allergy Verified 01/17/20 12:05 Home Medications Medication Instructions Recorded Confirmed Type No Home Medications 01/17/20 01/17/20 History Current Medications: Active Medications Amlodipine Besylate (Norvasc) 10 mg PO QAM [facility] Last Admin: 01/19/20 08:26 Dose: 10 mg Documented by: Chlordiazepoxide HCl (Librium Po) 25 mg PO Q8HR [facility] Last Admin: 01/19/20 14:32 Dose: 25 mg Documented by: Folic Acid (Folic Acid) 1 mg PO DAILY [facility] Last Admin: 01/19/20 08:25 Dose: 1 mg Documented by: Hydralazine HCl (Apresoline Hcl Inj) 10 mg IV PUSH Q8H PRN PRN Reason: Blood Pressure - High Last Admin: 01/18/20 22:12 Dose: 10 mg Documented by: Hydromorphone HCl (Dilaudid Inj) 0.5 mg IV PUSH Q4H PRN PRN Reason: Pain Rated 7-10 Last Admin: 01/17/20 18:06 Dose: 0.5 mg Documented by: Lidocaine (Lidoderm) 2 patch TRANSDERM DAILY [facility] Last Admin: 01/19/20 13:51 Dose: Not Given Documented by: Losartan Potassium (Cozaar) 50 mg PO DAILY [facility] Last Admin: 01/19/20 08:27 Dose: 50 mg Documented by: Metoprolol Succinate (Toprol Xl) 50 mg PO [facility] Last Admin: 01/19/20 08:27 Dose: 50 mg Documented by: Ondansetron HCl (Zofran Inj) 4 mg IV PUSH Q4H PRN PRN Reason: Nausea Thiamine HCl (Vitamin B-1) [facility] Admin: 01/19/20 08:25 Dose: 100 mg Documented by: Sedation/Anesthesia: No previous sedation/anesthesia problems (including family history). [facility] Surgical History Surgical History History of circumcision History of wisdom tooth extraction Family History Family History Unknown No family history of disorders Social History Social History Social History: Patient stated that he drinks 3-4 tall drinks of alcohol that is mixed with 1-1 and half shots of liquor and soda. He lives with his significant other. He is engaged. He does not have a power regulatory attorney. He desires to be a full code. 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 The patient has 2 sons. He smokes marijuana he still smokes cigarettes every day. Smoking packs per day: 1 Smoking cigarettes per day: 20.0 Smoking status: Current every day smoker Tobacco type: cigarettes Alcohol intake: current Substance use: current Substance use type: marijuana Gender identity (if verbalized by the patient): Male Spiritual care concerns: No Mod Sed Physical Exam Physical Exam Pre Procedural Exam: Normal: Appearance, Eyes, Ears, Nose, Neck, Throat, Airway, Lungs, Heart Size, Heart Rate, Heart Rhythm, Neuro Exam, Abdomen, Liver, Kidneys, Spleen, Breasts, Genitalia, Extremities and Skin Hours since solid foods: 8 Hours since liquid intake: 8 Internal Medicine - PN: Obj Da Vital Signs Vital Signs: Vital Signs - 24 hr 01/18/20 16:33 01/18/20 18:00 01/18/20 19:50 Temperature 35.7 C L 36.7 C Pulse Rate 100 108 H 87 Respiratory Rate 20 18 Blood Pressure 174/107 H 173/100 H Pulse Oximetry 100 97 01/18/20 20:00 01/18/20 22:00 01/19/20 00:00 Temperature 36.7 C Pulse Rate 89 92 95 Respiratory Rate 20 Blood Pressure 173/100 H 158/101 H Pulse Oximetry 97 99 01/19/20 02:00 01/19/20 04:00 01/19/20 06:00 Temperature 36.7 C Pulse Rate 79 91 89 Respiratory Rate 18 Blood Pressure 139/82 Pulse Oximetry 98 01/19/20 08:00 01/19/20 08:27 01/19/20 10:00 Temperature Pulse Rate 85 100 90 Respiratory Rate Blood Pressure 139/82 Pulse Oximetry 01/19/20 11:37 01/19/20 12:00 01/19/20 14:00 Temperature 36.9 C Pulse Rate 84 90 93 Respiratory Rate 18 18 Blood Pressure 139/82 146/94 H Pulse Oximetry 98 98 Intake/Output Intake/Output: Intake & Output 01/16/20 01/17/20 01/18/20
--- NOTE | 2020-01-19 16:57 | WPDCARDPROC ---
Cardiac Cath Procedure Note Date of procedure:: 01/19/20 Performing physician:: Steve Walker MD Procedure: 1. Left heart catheterization, selective coronary angiogram. 2. Left ventricular angiogram. 3. Conscious sedation. 4. Angio-Seal device for arterial hemostasis Senior Resident Care Director: Dr. Steve Walker Complications: None. Sedation: Conscious sedation, local anesthesia, using 1 mg of Versed said, 25 mcg of fentanyl, and using 1% lidocaine for local anesthesia. starting time is 4:30 p.m. ending time is 4:50 p.m. Technique: After informed consent was obtained from patient, was brought to the forestry farm laborer, put in the forestry farm laborer table, prepped and draped in usual sterile fashion. Five Romansh sheath was inserted into the right common femoral artery, through the sheath 5 Romansh JL4 catheter inserted, advanced to the left coronary artery, left coronary artery angiogram was obtained. The catheter was exchanged over guidewire into a 5 Romansh JR4 catheter, advanced to the right coronary artery, right coronary artery angiogram was obtained. The catheter then was exchanged over guidewire into this 5 Romansh pigtail catheter, advanced to left ventricle, left ventricular angiogram was obtained. The catheter then was pulled, the sheath was pulled applying Angio-Seal device for arterial hemostasis. Patient tolerated the procedure no complication, taken from the forestry farm laborer to his room in stable condition stable vital signs. Hemodynamics: aortic pressure 144/60 . LV pressure 144/04 with LVEDP of 16 mmHg Angiographic findings: Left main: Medium size artery no significant disease or stenosis. Lad medium size artery showed ostial 40% stenosis otherwise no other lesions Left circumflex artery, medium size artery, no significant disease or stenosis. RCA: Dominant vessel, showed mid RCA mild irregularity LV: mildly dilated left ventricle diastolic dysfunction global hypokinesis effects of 40% Summary: Mild coronary artery disease, moderate left ventricular systolic dysfunction Recommendation: Maximum medical treatment. Risk factor modification, blood pressure controlled, and avoiding alcohol.
--- NOTE | 2020-01-20 07:37 | PM.DS ---
DS: Admitting Diagnosis Admitting Diagnosis Admitting Diagnosis: DOS 01/19/2020 Acute pancreatitis without necrosis or infection, unspecified DS: Discharge Diagnosis Discharge Diagnosis (1) Pancreatitis: Qualifiers: Acute pancreatitis complication: unspecified Chronicity: acute Pancreatitis type: unspecified pancreatitis type Qualified Code(s): K85.90 - Acute pancreatitis without necrosis or infection, unspecified Code(s): K85.90 - Acute pancreatitis without necrosis or infection, unspecified Status: Acute Assessment and Plan: Most likely due to the alcoholism. diet advance after heart cath. Dischage with p.r.n. Librium, folic acid and thiamin. (2) Elevated troponin: Code(s): R79.89 - Other specified abnormal findings of blood chemistry Status: Acute Assessment and Plan: Pt going for heart cath (3) Alcoholism: Code(s): F10.20 - Alcohol dependence, uncomplicated Status: Chronic Assessment and Plan: Patient was advised to abstain from drinking. CIWA score p.r.n. Librium and routine folic acid thiamin in hospital. (4) Marijuana use: Code(s): F12.90 - Cannabis use, unspecified, uncomplicated Status: Chronic Assessment and Plan: Adviced to quit (5) Tobacco use: Code(s): Z72.0 - Tobacco use Status: Chronic Assessment and Plan: Pt does not want nicotine patch (6) Polycythemia: Code(s): D75.1 - Secondary polycythemia Status: Acute Assessment and Plan: Possibly secondary to sleep apnea or possible pulmonary hypertension. DS: Summary Time Spent with Patient Time attestation: Total time spent providing and/or coordinating discharge services:40 minutes on day of discharge Exam Const: General: cooperative, healthy appearing, comfortable, no acute distress, well developed, alert, awake and Physically active Nutritional Appearance: average body habitus and well nourished Orientation/consciousness: oriented to person, oriented to place, oriented to time and patient oriented x3 Limitations: no limitations Chest: Chest palpation & inspection: normal inspection of the chest Resp: Effort & Inspection: normal respiratory effort Auscultation: clear to auscultation bilaterally Percussion: percussion normal Cardio: Palpation: normal PMI Rate: regular rate and tachycardic Rhythm: regular rhythm Heart sounds: S1 normal heart sound present and S2 normal heart sound present Peripheral pulses: Peripheral pulses 2+ throughout GI: Inspection: normal to inspection Auscultation: normal bowel sounds Discharge Plan Discharge Attending physician on discharge: Ria Johnson Consulting providers: Steve Walker ; Ibrahima Woods ; Ok Huynh ; Geri Acuña ; Fazal Cardona ; Cruz Irwin Discharging Clinician: Ria Johnson Anticipated Discharge Date/Time: 01/19/20 18:20 Patient Disposition: Home, Self-Care Activity: as tolerated Diet: heart healthy Discharge Instructions: Post catherization instructions Patient Instructions: Antibiotic Form, Metoprolol (By mouth), Chlordiazepoxide (By mouth), Thiamine (By mouth), Folic Acid (By mouth), Amlodipine (By mouth), Losartan (By mouth), Heart Attack (DC), Pancreatitis (DC), Heart Healthy Diet (DC), Hypertensive Crisis (DC), Heart Catheterization (DC) Stand Alone Forms: General Discharge Information Follow-up/Referrals: Steve Walker MD [Physician] - Anderson,Rafael Paul MD [Primary Care Provider] - Discharge Medications: New losartan [Cozaar] 50 mg Tablet 50 mg PO DAILY Qty: 30 RF: 0 metoprolol succinate 50 mg Tablet Extended Release 24 Hr 50 mg PO QAM Qty: 30 RF: 0 thiamine HCl (vitamin B1) [Vitamin B-1] 100 mg Tablet 100 mg PO QAM Qty: 30 RF: 0 amlodipine [Norvasc] 5 mg Tablet 10 mg PO QAM Qty: 30 RF: 0 chlordiazepoxide HCl 25 mg Capsule 25 mg PO Q8HR Qty: 30 RF: 0 folic acid 1 m
== END 2020-01-19 20:50 | disposition home or self-care (01) | DRG 438 ==
LOC: ANHED 13:07 → ANHIMU 13:44
PROVIDERS: Nurse Practitioner; Specialist; Admitting Provider Family Medicine; Emergency Provider Emergency Medicine; PCP Internal Medicine; Visit Provider Family Medicine
PROC: 4A023N7 Measurement of Cardiac Sampling and Pressure, Left Heart, Percutaneous Approach (ICD-10-PCS; CPT 93452; principal; 2020-01-19 16:30)
PROC: 4A023N7 Measurement of Cardiac Sampling and Pressure, Left Heart, Percutaneous Approach (ICD-10-PCS; 2020-01-19 16:30)
DX: K85.20 Alcohol induced acute pancreatitis without necrosis or infection (principal); I21.4 Non-ST elevation (NSTEMI) myocardial infarction; I42.9 Cardiomyopathy, unspecified; I16.9 Hypertensive crisis, unspecified; I10 Essential (primary) hypertension; I25.10 Atherosclerotic heart disease of native coronary artery without angina pectoris; E86.0 Dehydration; F10.20 Alcohol dependence, uncomplicated; R79.89 Other specified abnormal findings of blood chemistry; F12.90 Cannabis use, unspecified, uncomplicated; F17.210 Nicotine dependence, cigarettes, uncomplicated; D75.1 Secondary polycythemia
CPT/HCPCS: 36415; 71046; 74177; 80053; 80061; 80307; 81001; 83690; 83735; 84443; 84484; 85025; 85027; 86140; 87086; 93005; 93306; 93458; 96361; 96374; 96375; 99291; A9270; C1760; C1887; C1894; G0269; J0360; J1170; J1644; J1940; J2250; J2270; J3010; J7030; J7040; Q9967